=== PATIENT | male | born 1955 | race Caucasian/White ===

== ENCOUNTER 2025-06-26 02:56 | Emergency (ER) | payer MEDICARE, OTHER | END 2025-06-26 03:40 | disposition home or self-care (01) | LOC: NAV ERS 02:56 | DX: N40.1 Benign prostatic hyperplasia with lower urinary tract symptoms (principal); R33.8 Other retention of urine; N13.8 Other obstructive and reflux uropathy; Z79.899 Other long term (current) drug therapy; Z79.51 Long term (current) use of inhaled steroids; Z79.82 Long term (current) use of aspirin | CPT/HCPCS: 51702; 99283 ==